=== PATIENT | male | born 1970 | race Caucasian/White ===

== ENCOUNTER 2021-01-23 20:03 | Emergency (ER) | payer OTHER ==
[~2021-01-23] VITALS: Ht 182.9 cm; Wt 117.9 kg
[2021-01-23 20:10] VITALS: BP_SYST 175
[2021-01-23] MEDS ORDERED: NIFE-55 PO (20:21)
[2021-01-23] MEDS ORDERED: LISI40TA13 PO (20:21)
[2021-01-23] MEDS ORDERED: ALLO100T PO (20:21)
[2021-01-23 20:38] LABS: BASOPHILS % (AUTO) 0.2 % (0.0-2.0); EOSINOPHILS % (AUTO) 0.4 % (0.0-4.0); HEMATOCRIT 45.6 % (36-54); HEMOGLOBIN 16.2 g/dL (14.0-18.0); LYMPHOCYTES % (AUTO) 12.1 % (20.5-51.5); MEAN CORPUSCULAR HEMOGLOBIN 32 pg (27-31); MEAN CORPUSCULAR HGB CONC 36 % (32-36); MEAN CORPUSCULAR VOLUME 91 fL (79.0-98.0); MONOCYTES # (AUTO) 0.4 K/uL (0.0-1.0); MONOCYTES % (AUTO) 5.1 % (1.7-9.3); NEUTROPHILS # (AUTO) 6.6 K/uL (1.8-7.7); NEUTROPHILS % (AUTO) 82.2 % (40.0-70.0); PLATELET COUNT (AUTO) 180 K/uL (130-430); RED BLOOD CELL COUNT(AUTO) 5.01 MIL/uL (4.2-6.2); WHITE BLOOD COUNT (AUTO) 8.1 K/uL (4.8-10.8)
[2021-01-23 20:52] LABS: BILIRUBIN,URINE NEGATIVE (NEGATIVE); BLOOD, URINE 2+ (NEGATIVE); CLARITY/URINE CLEAR (CLEAR); COLOR,URINE YELLOW (YELLOW); GLUCOSE,URINE NEGATIVE (NEGATIVE); KETONES,URINE 1+ (NEGATIVE); LEUKOCYTE ESTERASE ,URINE NEGATIVE (NEGATIVE); NITRITE, URINE NEGATIVE (NEGATIVE); PROTEIN URINE NEGATIVE (NEGATIVE); UROBILINOGEN,URINE 0.2 (0.2-1.0)
[2021-01-23 20:53] LABS: CALCIUM 8.9 mg/dL (8.4-11.0); CREATININE 0.99 mg/dL (0.55-1.30); POTASSIUM 3.6 mmol/L (3.5-5.1)
[2021-01-23 20:54] LABS: C-REACTIVE PROTEIN QUANT 1.2 mg/dL (0-0.5)
[2021-01-23 20:59] LABS: ALBUMIN 3.9 g/dL (3.4-4.8); TOTAL BILIRUBIN 0.6 mg/dL (0.0-1.0)
[2021-01-23 21:08] LABS: BACTERIA,URINE RARE /HPF (None Seen); WBC,URINE 0-3 /HPF (0-3)
[2021-01-23 21:09] LABS: MUCUS,URINE None Seen /LPF (None Seen)
[2021-01-23 21:20] LABS: PROTHROMBIN TIME 10.3 SECS (9.5-12.5)
[2021-01-23] MEDS ORDERED: IBUP-1971 PO (21:23)
[2021-01-23] MEDS ORDERED: AMOX-423 PO (21:24)
[2021-01-23] MEDS ORDERED: KETOROLAC TROMETHAMINE 60 MG/2 ML VIAL IM ONE (21:30)
[2021-01-23 21:42] VITALS: BP_SYST 165
== END 2021-01-23 21:51 | disposition home or self-care (01) ==
LOC: SED 20:03
DX: R10.84 Generalized abdominal pain (principal); I10 Essential (primary) hypertension; M10.9 Gout, unspecified; Z79.899 Other long term (current) drug therapy; Z88.6 Allergy status to analgesic agent
CPT/HCPCS: 36415; 76376; 80053; 81000-TC; 82150-TC; 83605; 83615-TC; 83690-TC; 85025; 85610-TC; 85730-TC; 86140; 96372; 99284